=== PATIENT | female | born 1940 | race Caucasian/White ===

== ENCOUNTER → 2023-06-25 09:02 | Outpatient (REF) | payer MEDICARE, BC, SELFPAY | LOC: CLAB 09:02 | PROVIDERS: ATTENDING PHYSICIAN Specialist | DX: N39.0 Urinary tract infection, site not specified (principal) | CPT/HCPCS: 87086 ==

== ENCOUNTER → 2023-08-25 08:25 | Outpatient (REF) | payer MEDICARE, BC, SELFPAY | LOC: HWLAB 08:25 | PROVIDERS: ATTENDING PHYSICIAN Specialist; FAMILY PHYSICIAN Internal Medicine | DX: N39.0 Urinary tract infection, site not specified (principal) | CPT/HCPCS: 87086 ==

== ENCOUNTER → 2023-08-27 09:42 | Outpatient (REF) | payer MEDICARE, BC, SELFPAY | LOC: HWLAB 09:42 | PROVIDERS: ATTENDING PHYSICIAN Specialist; FAMILY PHYSICIAN Internal Medicine | DX: N39.0 Urinary tract infection, site not specified (principal) | CPT/HCPCS: 87086 ==

== ENCOUNTER → 2023-10-10 16:05 | Outpatient (REF) | payer MEDICARE, BC, SELFPAY | LOC: CLAB 16:05 | PROVIDERS: ATTENDING PHYSICIAN Specialist | DX: N39.0 Urinary tract infection, site not specified (principal) | CPT/HCPCS: 87086 ==

== ENCOUNTER → 2023-10-24 08:38 | Outpatient (REF) | payer MEDICARE, BC, SELFPAY | LOC: HWLAB 08:38 | PROVIDERS: ATTENDING PHYSICIAN Specialist; FAMILY PHYSICIAN Internal Medicine | DX: N39.0 Urinary tract infection, site not specified (principal) | CPT/HCPCS: 87077; 87086 ==

== ENCOUNTER → 2023-11-28 09:38 | Outpatient (REF) | payer MEDICARE, BC, SELFPAY | LOC: HWLAB 09:38 | PROVIDERS: ATTENDING PHYSICIAN Specialist; FAMILY PHYSICIAN Internal Medicine | DX: N39.0 Urinary tract infection, site not specified (principal) | CPT/HCPCS: 87077; 87086; 87186 ==

== ENCOUNTER → 2024-01-09 13:53 | Outpatient (REF) | payer MEDICARE, BC, SELFPAY | LOC: CLAB 13:53 | PROVIDERS: ATTENDING PHYSICIAN Specialist | DX: N39.0 Urinary tract infection, site not specified (principal) | CPT/HCPCS: 87077; 87086 ==

== ENCOUNTER → 2024-02-09 08:18 | Outpatient (REF) | payer MEDICARE, BC, SELFPAY | LOC: HWLAB 08:18 | PROVIDERS: ATTENDING PHYSICIAN Specialist; FAMILY PHYSICIAN Internal Medicine | DX: N39.0 Urinary tract infection, site not specified (principal) | CPT/HCPCS: 87086 ==

== ENCOUNTER → 2024-04-05 07:01 | Outpatient (REF) | payer MEDICARE, BC, SELFPAY | LOC: HWLAB 07:01 | PROVIDERS: ATTENDING PHYSICIAN Specialist; FAMILY PHYSICIAN Internal Medicine | DX: N39.0 Urinary tract infection, site not specified (principal) | CPT/HCPCS: 87086 ==

== ENCOUNTER → 2024-04-12 09:36 | Outpatient (REF) | payer MEDICARE, BC, SELFPAY | LOC: CLAB 09:36 | PROVIDERS: ATTENDING PHYSICIAN Specialist | DX: N39.0 Urinary tract infection, site not specified (principal) | CPT/HCPCS: 87086 ==

== ENCOUNTER → 2024-05-28 09:34 | Outpatient (REF) | payer MEDICARE, BC, SELFPAY | LOC: HWLAB 09:34 | PROVIDERS: ATTENDING PHYSICIAN Specialist; FAMILY PHYSICIAN Internal Medicine | DX: N39.0 Urinary tract infection, site not specified (principal) | CPT/HCPCS: 87086 ==

== ENCOUNTER → 2024-08-25 08:02 | Outpatient (REF) | payer MEDICARE, BC, SELFPAY | LOC: HWLAB 08:02 | PROVIDERS: ATTENDING PHYSICIAN Specialist; FAMILY PHYSICIAN Internal Medicine | DX: N39.0 Urinary tract infection, site not specified (principal) | CPT/HCPCS: 87086 ==

== ENCOUNTER → 2024-09-15 15:16 | Outpatient (REF) | payer MEDICARE, BC, SELFPAY | LOC: CLAB 15:16 | PROVIDERS: ATTENDING PHYSICIAN Specialist | DX: N39.0 Urinary tract infection, site not specified (principal) | CPT/HCPCS: 87086 ==

== ENCOUNTER → 2024-10-11 09:28 | Outpatient (REF) | payer MEDICARE, BC, SELFPAY | LOC: HWLAB 09:28 | PROVIDERS: ATTENDING PHYSICIAN Specialist; FAMILY PHYSICIAN Internal Medicine | DX: N39.0 Urinary tract infection, site not specified (principal) | CPT/HCPCS: 87086 ==

== ENCOUNTER → 2024-12-03 07:22 | Outpatient (REF) | payer MEDICARE, BC, SELFPAY | LOC: HWLAB 07:22 | PROVIDERS: ATTENDING PHYSICIAN Specialist; FAMILY PHYSICIAN Internal Medicine | DX: N39.0 Urinary tract infection, site not specified (principal) | CPT/HCPCS: 87086 ==

== ENCOUNTER → 2025-02-18 10:39 | Outpatient (REF) | payer MEDICARE, BC, SELFPAY | LOC: HWLAB 10:39 | PROVIDERS: ATTENDING PHYSICIAN Specialist; FAMILY PHYSICIAN Internal Medicine | DX: N39.0 Urinary tract infection, site not specified (principal) | CPT/HCPCS: 87086 ==

== ENCOUNTER → 2025-04-06 13:41 | Outpatient (REF) | payer MEDICARE, BC, SELFPAY | LOC: CLAB 13:41 | PROVIDERS: ATTENDING PHYSICIAN Specialist | DX: N39.0 Urinary tract infection, site not specified (principal) | CPT/HCPCS: 87086 ==